=== PATIENT | male | born 1990 | race Caucasian/White ===

== ENCOUNTER → 2017-08-06 | Outpatient (CLI) | payer BC ==
[~2017-08-06] MED LIST: CEPH500C PO; CFTR250V IM; CLIN-80 PO; HYDR-3720 PO; HYDR-757 PO; IBUP800T26 PO
--- NOTE | 2017-08-06 17:57 | Diagnostic Imaging Report ---
INDICATION: Sledding injury. EXAMINATION: AP and lateral views of the sacrum were obtained. FINDINGS: No fracture or dislocation of the sacrum. IMPRESSION: Negative sacrum and coccyx. Dictated by: Dictated on workstation # [id number]
--- NOTE | 2017-08-06 17:57 | Diagnostic Imaging Report ---
Indication: Back injury Lumbar spine AP and lateral views of lumbar spine show grade 1 spondylolisthesis at L4-5. There are suspected bilateral pars defects at L4 that could be acute fractures. Impression: Grade 1 spondylolisthesis at L4-5 with suspected bilateral pars interarticularis fractures. Dictated by: Dictated on workstation # [id number]
== END ==
LOC: RAD 17:31
PROVIDERS: ATTEND Nurse Practitioner Family
DX: S39.92XA Unspecified injury of lower back, initial encounter (principal); M43.16 Spondylolisthesis, lumbar region; Y93.23 Activity, snow (alpine) (downhill) skiing, snowboarding, sledding, tobogganing and snow tubing
CPT/HCPCS: 72100; 72220

== ENCOUNTER → 2017-08-15 | Outpatient (CLI) | payer BC ==
--- NOTE | 2017-08-15 12:46 | Diagnostic Imaging Report ---
PROCEDURE: MRI lumbar spine. TECHNIQUE: Multiplanar, multisequence MRI of the lumbar spine was performed without contrast. INDICATION: Back pain after sliding accident. FINDINGS: The alignment of the lumbar spine is normal. The vertebral body heights are well-maintained. There is no spondylolysis or spondylolisthesis. No fractures are identified. Conus medullaris is seen at L1 is normal in appearance. The T12-L1 disc is unremarkable. L1-L2 disc is unremarkable. L2-L3 disc is unremarkable. L3-L4 disc is unremarkable. At L4-L5, there is slight loss of disc height and signal intensity. Some broad-based annular bulging slightly more prominent in a left paramedian distribution. There is slight effacement of ventral thecal sac and mild left neural foraminal encroachment. At L5-S1, there is mild left paramedian and left lateral annular bulging. This contributes to some mild left neural foraminal encroachment. The abdominal aorta is nonaneurysmal. The kidneys are normal. There are no other focal soft tissue abnormalities. IMPRESSION: Mild lower lumbar degenerative disc disease as detailed above. Dictated by: Dictated on workstation # [id number]
== END ==
LOC: RAD 11:26
PROVIDERS: ATTEND Physician Assistant
DX: M47.27 Other spondylosis with radiculopathy, lumbosacral region (principal)
CPT/HCPCS: 72148

== ENCOUNTER 2018-09-16 18:40 | Emergency (ER) | payer BC ==
[~2018-09-16] VITALS: Ht 177.8 cm; Wt 77.1 kg
[2018-09-16] MEDS ORDERED: AMOXICILLIN 500 MG (POLYMOX) CAP PO STA (18:48)
[2018-09-16] MEDS ORDERED: HYDR-4226 PO (18:53)
[2018-09-16] MEDS ORDERED: AMOX500C2 PO (18:53)
--- NOTE | 2018-09-16 18:53 | ED EENT ---
History of Present Illness General Stated Complaint: DENTAL PAIN Source: patient Exam Limitations: no limitations History of Present Illness Date Seen by Provider: Sep 16, 2018 Time Seen by Provider: 18:49 Initial Comments To ER with left upper dental pain. He had 2 teeth removed from this location on , 09/14/18. He's had progressive pain now spreads over to the right upper maxilla and pain on both sides of his nose. He was not given antibiotics or pain medication he states. No fevers but he has had chills. Timing/Duration: gradual Severity: moderate Location: facial, dental Associated Symptoms: facial pain/swelling Allergies and Home Medications Allergies Coded Allergies: No Known Drug Allergies (Unverified , 10/28/13) Home Medications Ceftriaxone Sodium 250 Mg/Vial Soln, 1 GM IM ONCE Prescribed by: OLAF OWENS on 10/28/13 1202 Cephalexin Monohydrate 500 Mg Capsule, 1 EACH PO TID Prescribed by: SANDRA PERKINS on 12/04/14 2204 Clindamycin Hcl 150 Mg Capsule, 300 MG PO Q6H, (Reported) Hydrocodone Bit/Acetaminophen 1 Each Tablet, 1-2 EACH PO Q4-6HR PRN for PAIN Prescribed by: OLAF OWENS on 10/28/13 1202 Hydrocodone Bit/Acetaminophen 1 Each Tablet, 1 EA PO Q6H PRN for SEVERE PAIN Prescribed by: SANDRA PERKINS on 12/04/14 2204 Ibuprofen 800 Mg Tablet, 800 MG PO q8h PRN for PAIN, (Reported) Patient Home Medication List Home Medication List Reviewed: Yes Review of Systems Review of Systems Constitutional: see HPI, chills Eyes: No Symptoms Reported Ears: No Symptoms Reported Nose: no symptoms reported Mouth: see HPI Throat: no symptoms reported Respiratory: no symptoms reported Cardiovascular: no symptoms reported Musculoskeletal: no symptoms reported Past Cvwaymr-Bwfqsz-Mzurkg Hx Patient Social History Recent Foreign Travel: No Contact w/Someone Who Travel: No Immunizations Up To Date Tetanus Booster (TDap): Unknown Physical Exam Height, Weight, BMI Height: 5'10" Weight: 150lbs. oz. 68.114064up; BMI Method:Stated General Appearance: WD/WN, no apparent distress Eyes: bilateral eye normal inspection, bilateral eye PERRL, bilateral eye EOMI Ears: bilateral ear auricle normal, bilateral ear canal normal, bilateral ear TM normal Mouth/Throat: pharynx normal, dental tenderness, other (no visualized swelling or abscess. No bleeding. No instability of the maxilla.) Neck: non-tender, full range of motion Cardiovascular: regular rate, rhythm Respiratory: no respiratory distress, no accessory muscle use Gastrointestinal: normal bowel sounds, non tender Departure Impression Primary Impression: Postoperative pain Additional Impression: Pain, dental Disposition: HOME, SELF-CARE Condition: Stable Departure-Patient Inst. Decision time for Depature: 18:52 Referrals: NO,LOCAL PHYSICIAN (PCP/Family) Primary Care Physician Patient Instructions: Dental Pain Add. Discharge Instructions: 1. Return to ER for any increasing intolerable pain, fevers, increasing swelling or other concerns. Call your dentist on Tuesday follow-up. Scripts Hydrocodone/Acetaminophen ([place] 5-325 Tablet) 1 Each Tablet 1 EACH PO Q6H PRN for PAIN-MODERATE MDD 10, #14 TAB Prov: SANDRA PERKINS APRN 09/16/18 Amoxicillin (Amoxicillin) 500 Mg Capsule 500 MG PO TID, #21 CAP Prov: SANDRA PERKINS APRN 09/16/18 Images Mouth/Nose 1 - Tenderness SANDRA PERKINS APRN Sep 16, 2018 18:53
[2018-09-16] MEDS ORDERED: RX-HYDROCODONE/APAP 5/325 MG #4 TAB PK PO PRN (19:00)
[2018-09-16 19:12] VITALS: BP 157/86
== END 2018-09-16 18:57 | disposition home or self-care (01) ==
LOC: EDUNIT# 18:40 → ER 18:41
DX: G89.18 Other acute postprocedural pain (principal); K08.89 Other specified disorders of teeth and supporting structures; Z98.890 Other specified postprocedural states
CPT/HCPCS: 99283

== ENCOUNTER 2018-09-17 02:16 | Emergency (ER) | payer BC ==
[~2018-09-17] VITALS: Ht 177.8 cm; Wt 77.1 kg
[~2018-09-17 02:16] MED LIST changes: +AMOX500C2 PO; +HYDR-4226 PO
--- NOTE | 2018-09-17 03:56 | ED EENT ---
History of Present Illness General Chief Complaint: Dental Problems/Pain Stated Complaint: DENTAL PAIN,FACE SWOLLEN,PT CRYING Nursing Triage Note: Pt reports he had dental work done on (09/14). Pt was seen in this ED for dental pain last night. Pt reports pain and swelling has worsened. Pt reports a blister on top of his mouth. Pt was prescribed hydrocodone last night and amoxicillin. Pt states pharmacy was closed after leaving ER and has not picked up amoxicillin Rx yet. Source: patient, old records Exam Limitations: no limitations History of Present Illness Date Seen by Provider: Sep 17, 2018 Time Seen by Provider: 03:54 Initial Comments Patient resists ER by private conveyance with chief complaint of some face pain and swelling. Couple days ago he had a tooth extracted and had two dentists work on for over 2 hours and said it felt like they were about to break his face. They told him come back in 3 weeks and they would be something else about it. The tooth they're trying to extract was on his left upper frontal maxillary line. He is having quite a bit of pain today so he came in the ER last night around 1800 seen by one of the practitioners and given some hydrocodone and a first dose of amoxicillin. He's not picked up the prescription because the pharmacy does not open until tomorrow morning. He's not had any fever but he's felt some chills and sweats. He is noticing a lot more swelling now on the opposite side of his face right maxillary running up along his nose and around his eyes. He says he feels like he has a headache behind his eyes now right worse than left. Does not take any other medicines nor have any significant medical disease. States the hydrocodone is not cutting the pain either. He feels like there is a bunch of swelling in his gums and abscess. Allergies and Home Medications Allergies Coded Allergies: No Known Drug Allergies (Unverified , 10/28/13) Home Medications Amoxicillin 500 Mg Capsule, 500 MG PO TID Prescribed by: SANDRA PERKINS on 09/16/18 185 Ceftriaxone Sodium 250 Mg/Vial Soln, 1 GM IM ONCE Prescribed by: OLAF OWENS on 10/28/13 1202 Cephalexin Monohydrate 500 Mg Capsule, 1 EACH PO TID Prescribed by: SANDRA PERKINS on 12/04/14 2204 Clindamycin Hcl 150 Mg Capsule, 300 MG PO Q6H, (Reported) Hydrocodone Bit/Acetaminophen 1 Each Tablet, 1-2 EACH PO Q4-6HR PRN for PAIN Prescribed by: OLAF OWENS on 10/28/13 1202 Hydrocodone Bit/Acetaminophen 1 Each Tablet, 1 EA PO Q6H PRN for SEVERE PAIN Prescribed by: SANDRA PERKINS on 12/04/14 2204 Hydrocodone/Acetaminophen 1 Each Tablet, 1 EACH PO Q6H PRN for PAIN-MODERATE Prescribed by: SANDRA PERKINS on 09/16/18 1853 Ibuprofen 800 Mg Tablet, 800 MG PO q8h PRN for PAIN, (Reported) Patient Home Medication List Home Medication List Reviewed: Yes Review of Systems Review of Systems Constitutional: chills; No fever; malaise Eyes: Denies Blindness, Denies Blurred Vision Ears: Denies Dizziness, Denies Pain Nose: denies clots, denies congestion Mouth: denies clots; pain, swelling; denies bloody discharge, denies clear discharge, denies purulent discharge Throat: denies pain, denies swelling Respiratory: No cough, No short of breath Cardiovascular: No chest pain, No edema Past Pjbhdtb-Aiiamz-Cmzagk Hx Patient Social History Alcohol Use: Denies Use Recreational Drug Use: No Smoking Status: Current Everyday Smoker Type Used: Electronic/Vapor Recent Foreign Travel: No Contact w/Someone Who Travel: No Recent Infectious Disease Expo: No Recent Hopitalizations: No Physical Abuse: No Sexual Abuse: No Immunizations Up To Date Tetanus Booster (TDap): Unknown Seasonal Allergies Seasonal Allergies: No Past Medical History Surgeries: Yes (ARTHROSCOPIC SHOULDER) Respiratory: No Cardiac: No Neurological: No Genitourinary: No Gastrointestinal: No Musculoskeletal: No Endocrine: No HEENT: No Cancer: No Psychosocial: No Integumentary: No Physical Exam Vital Signs Vital Signs - First Documented 09/17/18 03:29 Temp 98.2 Pulse 91 Resp 18 B/P (MAP) 146/90 (108) Pulse Ox 97 O2 Delivery Room Air Height, Weight, BMI Height: 5'10.00" Weight: 170lbs. oz. 77.208106hb; BMI Method:Stated General Appearance: WD/WN, mild distress Eyes: bilateral eye normal inspection, bilateral eye PERRL, bilateral eye EOMI Ears: bilateral ear auricle normal, bilateral ear canal normal, bilateral ear TM normal Nose: normal inspection; No active bleeding, No discharge Mouth/Throat: other (tooth socket left upper maxilla. Right eye tooth with caries, tenderness and some gingival swelling but no obvious abscess. Right maxillary facial edema/cellulitis) Neck: non-tender, full range of motion, supple, normal inspection Cardiovascular: normal peripheral pulses, regular rate, rhythm, no edema Respiratory: lungs clear, normal breath sounds, no respiratory distress, no accessory muscle use Gastrointestinal: non tender, soft Neurologic/Psychiatric: alert, oriented x 3 Skin: normal color, warm/dry Progress/Results/Core Measures Results/Orders Lab Results Laboratory Tests Test 09/17/18 04:25 Range/Units White Blood Count 15.5 H 4.3-11.0 10^3/uL Red Blood Count 5.15 4.35-5.85 10^6/uL Hemoglobin 15.5 13.3-17.7 G/DL Hematocrit 43 40-54 % Mean Corpuscular Volume 83 80-99 FL Mean Corpuscular Hemoglobin 30 25-34 PG Mean Corpuscular Hemoglobin Concent 36 32-36 G/DL Red Cell Distribution Width 13.2 10.0-14.5 % Platelet Count 258 130-400 10^3/uL Mean Platelet Volume 9.0 7.4-10.4 FL Neutrophils (%) (Auto) 82 H 42-75 % Lymphocytes (%) (Auto) 9 L 12-44 % Monocytes (%) (Auto) 8 0-12 % Eosinophils (%) (Auto) 1 0-10 % Basophils (%) (Auto) 0 0-10 % Neutrophils # (Auto) 12.7 H 1.8-7.8 X 10^3 Lymphocytes # (Auto) 1.4 1.0-4.0 X 10^3 Monocytes # (Auto) 1.3 H 0.0-1.0 X 10^3 Eosinophils # (Auto) 0.1 0.0-0.3 10^3/uL Basophils # (Auto) 0.0 0.0-0.1 10^3/uL My Orders Orders - CARIDAD LOU Ct Maxillofacial Wo (09/17/18 03:53) Cbc With Automated Diff (09/17/18 03:53) Comprehensive Metabolic Panel (09/17/18 03:53) Hs C Reactive Protein (09/17/18 03:53) Ketorolac Injection (Toradol Injection) (09/17/18 04:00) Ketorolac Injection (Toradol Injection) (09/17/18 04:30) Saline Lock/Iv-Start (09/17/18 04:18) Manual Differential (09/17/18 04:25) Ceftriaxone For Iv Use (Rocephin For I (09/17/18 04:45) Lidocaine 2% Viscous 15 Ml (Xylocaine Vi (09/17/18 04:45) Medications Given in ED Current Medications Medications Dose Ordered Sig/Vishnu Route Start Time Stop Time Status Last Admin Dose Admin Ketorolac Tromethamine 30 mg ONCE ONCE IVP 09/17/18 04:30 09/17/18 04:31 DC 09/17/18 04:25 30 MG Vital Signs/I&O 09/17/18 03:29 Temp 98.2 Pulse 91 Resp 18 B/P (MAP) 146/90 (108) Pulse Ox 97 O2 Delivery Room Air Blood Pressure Mean: 108 Progress Progress Note : Time: 04:[address] maxillofacial, basic labs and Toradol. Patient stated she's had some chills but has not checked for fever. He is afebrile today. Heart rate above 90. If he has a white count we will get cultures. Diagnostic Imaging Diagonstic Imaging: CT (noncontrast) Plain Films/CT/US/NM/MRI: head (maxillofacial) Comments Sees some infection in the right upper incisor extending with some swelling but no abscess of the face. Left upper eye tooth still has the root intact and could be a nidus for abscess formation. He recommends that this gets removed sooner rather than later. There is bilateral facial swelling which may represent an infectious process. No underlying abscess. There is periapical lucency around the right maxillary lateral incisor, likely due to odontogenic disease. Left side demonstrates missing left first and second premolars. Adjacent to the left first premolar space is a triangular density measuring 8 mm which may represent a tooth fragment. This may be causing the left-sided facial swelling. Reviewed: Reviewed Night Hawk Study, Reviewed by Me, Discussed w/Radiologist Departure Impression Primary Impression: Pain in a tooth or teeth Additional Impression: Facial cellulitis Disposition: 01 HOME, SELF-CARE Condition: Stable Departure-Patient Inst. Decision time for Depature: 04:42 Referrals: NO,LOCAL PHYSICIAN (PCP/Family) Primary Care Physician Patient Instructions: Fractured Tooth (DC) Add. Discharge Instructions: You may apply 1 g of the viscous lidocaine jelly to some gauze and place in the tooth socket every 4 hours. Use the Tylenol and ibuprofen. If you have breakthrough pain you can use the hydrocodone one tablet as prescribed. Continue to use the amoxicillin as prescribed 3 times a day. Follow-up Tuesday, tomorrow with the dentist and look for further management of your impacted tooth and facial cellulitis. Warm compresses to the face. All discharge instructions reviewed with patient and/or family. Voiced understanding. Work/School Note: Work Release Form Date Seen in the Emergency Department: Sep 17, 2018 Return to Work: Sep 19, 2018 Restrictions: No Restrictions CARIDAD LOU Sep 17, 2018 03:56
[2018-09-17] MEDS ORDERED: KETOROLAC 30 MG/ML VIAL IM ONE (04:00)
[2018-09-17] MEDS ORDERED: KETOROLAC 30 MG/ML VIAL IVP ONE (04:30)
[2018-09-17 04:34] LABS: BASOPHILS % (AUTO) 0 % (0-10); EOSINOPHILS # (AUTO) 0.1 10^3/uL (0.0-0.3); EOSINOPHILS % (AUTO) 1 % (0-10); HEMATOCRIT 43 % (40-54); HEMOGLOBIN 15.5 G/DL (13.3-17.7); LYMPHOCYTES # (AUTO) 1.4 X 10^3 (1.0-4.0); LYMPHOCYTES % (AUTO) 9 % (12-44); MEAN CORPUSCULAR HEMOGLOBIN 30 PG (25-34); MEAN CORPUSCULAR HGB CONC 36 G/DL (32-36); MEAN CORPUSCULAR VOLUME 83 FL (80-99); MONOCYTES # (AUTO) 1.3 X 10^3 (0.0-1.0); MONOCYTES % (AUTO) 8 % (0-12); NEUTROPHILS # (AUTO) 12.7 X 10^3 (1.8-7.8); NEUTROPHILS % (AUTO) 82 % (42-75); PLATELET COUNT 258 10^3/uL (130-400); RED CELL DISTRIBUTION WIDTH 13.2 % (10.0-14.5); WHITE BLOOD COUNT 15.5 10^3/uL (4.3-11.0)
[2018-09-17] MEDS ORDERED: cefTRIAXone FOR IV USE 1,000 MG in WATER (STERILE) FOR INJECTION 10 ML IV ONE (04:45)
[2018-09-17] MEDS ORDERED: LIDOCAINE 2% VISCOUS 15 ML UDC PO ONE (04:45)
[2018-09-17 04:53] LABS: ALANINE AMINOTRANSFERASE 24 U/L (0-55); ALBUMIN 4.6 GM/DL (3.2-4.5); ALKALINE PHOSPHATASE 65 U/L (40-136); BILIRUBIN,TOTAL 0.8 MG/DL (0.1-1.0); BUN/CREATININE RATIO 7; CALCIUM 9.8 MG/DL (8.5-10.1); CARBON DIOXIDE 25 MMOL/L (21-32); CHLORIDE 102 MMOL/L (98-107); CREATININE SERUM 0.83 MG/DL (0.60-1.30); GFR ESTIMATED > 60; GLUCOSE 120 MG/DL (70-105); POTASSIUM 3.8 MMOL/L (3.6-5.0); SODIUM 139 MMOL/L (135-145); TOTAL PROTEIN 7.5 GM/DL (6.4-8.2)
[2018-09-17 05:03] VITALS: BP 146/78
[2018-09-17 05:38] LABS: EOSINOPHILS % (MANUAL) 1 %; LYMPHOCYTES % (MANUAL) 9 %; MONOCYTES % (MANUAL) 6 %; NEUTROPHILS % (MANUAL) 84 %
--- NOTE | 2018-09-17 07:38 | Diagnostic Imaging Report ---
PROCEDURE: CT maxillofacial without contrast. TECHNIQUE: Multiple contiguous axial images were obtained through the facial bones without the use of intravenous contrast. INDICATION: Recent left-sided dental work with left sided facial pain. FINDINGS: There are findings compatible with recent extraction of the patient's left-sided first and second premolars with a small degree of fluid and gas within the tooth sockets. Just lateral of the maxilla to level of the first premolar is a linear calcification which has morphology suggestive of a tooth root. This may reflect a retained broken tooth root fragment. All of the patient's maxillary molars appear to been previously retracted bilaterally. The mandible also demonstrates a prior second premolar and molar extractions. There is some diffuse facial swelling demonstrated about the maxilla bilaterally which likely reflects a post surgical edema or inflammation. There is no definable fluid collection or abscess. There is no significant soft tissue gas. There is some mucosal thickening within the maxillary sinuses as well as some bubbly fluid in the left maxillary sinus. The orbital contents appear unremarkable. The mastoids and middle ears appear clear. Limited assessment of intracranial contents unremarkable. The posterior nasopharynx and oropharynx and visualized portion of the airway unremarkable. Small bilateral cervical lymph nodes. IMPRESSION: 1. Recent left-sided tooth extractions with what appears to be a small retained tooth root fragment lateral of the left maxilla at the level of the first premolar extraction. 2. Bilateral hermelinda-maxillary soft tissue swelling which may reflect infection or postsurgical change. There is no definable fluid collection or drainable abscess. 3. Mucosal thickening within the maxillary sinuses as well as some bubbly fluid in the left maxillary sinus suggesting sinusitis. 4. Extensive prior remote and molar resections as above. 5. Agree with the preliminary stat report. Dictated by: Dictated on workstation # [id number]
== END 2018-09-17 05:03 | disposition home or self-care (01) ==
LOC: EDUNIT# 02:16 → ER 02:18
DX: L03.211 Cellulitis of face (principal); K08.89 Other specified disorders of teeth and supporting structures; F17.290 Nicotine dependence, other tobacco product, uncomplicated; Z98.890 Other specified postprocedural states
CPT/HCPCS: 36415; 70486; 80053; 85007; 85027; 86141

== ENCOUNTER → 2020-01-17 | Outpatient (CLI) | payer BC ==
--- NOTE | 2020-01-17 13:35 | Diagnostic Imaging Report ---
PROCEDURE: CT lumbar spine without contrast. TECHNIQUE: Multiple contiguous axial images were obtained through the lumbar spine without the use of intravenous contrast. Sagittal and coronal reformations were then performed. Auto Exposure Controls were utilized during the CT exam to meet ALARA standards for radiation dose reduction. INDICATION: Low back pain. FINDINGS: Curvature of the lumbar spine is normal. There is minimal anterolisthesis of L4 on L5. Vertebral body heights are maintained. No acute fractures are seen. There are pars defects bilaterally at the L3-L4 and L4-L5 levels. These appear to be well-corticated and likely chronic. Bony canal appears to be widely patent at all levels. The paraspinous tissues are unremarkable. IMPRESSION: Minimal spondylolisthesis at L4 on L5. There are bilateral pars defects at L3-L4 and L4-L5 levels. No other significant abnormality is detected. Dictated by: Dictated on workstation # [id number]
--- NOTE | 2020-01-17 14:42 | Diagnostic Imaging Report ---
PROCEDURE: MRI lumbar spine. TECHNIQUE: Multiplanar, multisequence MRI of the lumbar spine was performed without contrast. INDICATION: Low back pain and low back injuries. COMPARISON: Correlation is made with prior MRI study from 08/15/[address] lumbar spine performed earlier the same day. FINDINGS: Curvature of the lumbar spine is normal. Minimal anterolisthesis of L4 on L5 is again noted. Pars defects at the L3-L4 and L4-L5 levels are noted. No associated marrow edema is present to suggest acute fractures. Vertebral body heights are maintained. No vertebral body fracture or vertebral body marrow lesion is seen. There is some loss of height and signal intensity to the L4-L5 and L5-S1 discs, compatible with mild degenerative disc disease. Conus is unremarkable at the T12-L1 level. T12-L1: Central canal and neuroforamina are widely patent. L1-L2: Central canal and neuroforamina are widely patent. L2-L3: Central canal and neuroforamina are widely patent. L3-L4: Central canal and neuroforamina are widely patent. L4-L5: There is broad-based disc bulging. Central canal is widely patent. There is moderate left neuroforaminal narrowing. Right neuroforamen is patent. L5-S1: There is some linear signal within the posterolateral annulus which may represent annular tear. There is asymmetric left posterolateral broad-based disc bulging, resulting in [id number] left neuroforaminal narrowing. Right neuroforamen and central canal are patent. Paraspinous tissues are unremarkable. IMPRESSION: 1. 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 There is minimal anterolisthesis of L4 on L5. 2. L4-L5 and L5-S1 degenerative disc disease with neuroforaminal narrowing, as described. No central canal stenosis is detected. Dictated by: Dictated on workstation # [id number]
== END ==
LOC: RAD 13:04
PROVIDERS: ATTEND Orthopaedic Surgery
DX: M51.37 Other intervertebral disc degeneration, lumbosacral region (principal)
CPT/HCPCS: 72131; 72148

== ENCOUNTER 2020-05-24 16:26 | Emergency (ER) | payer BC ==
[~2020-05-24] VITALS: Ht 180.3 cm; Wt 72.6 kg
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
[2020-05-24] MEDS ORDERED: LIDOCAINE 1% INJ 20 ML 20 ML VIAL ONE (16:57)
[2020-05-24] MEDS ORDERED: BUPIVACAINE 0.25% 30 ML (SENSORCAINE) VIAL INJ ONE (17:00)
[2020-05-24] MEDS ORDERED: LIDOCAINE 1% INJ 20 ML 20 ML VIAL INJ ONE (17:00)
[2020-05-24] MEDS ORDERED: CEPH500T PO (17:44)
[2020-05-24 17:55] VITALS: BP 122/71
== END 2020-05-24 17:55 | disposition home or self-care (01) ==
LOC: EDUNIT# 16:26 → ER 16:27
DX: S61.011A Laceration without foreign body of right thumb without damage to nail, initial encounter (principal); F17.290 Nicotine dependence, other tobacco product, uncomplicated; W45.8XXA Other foreign body or object entering through skin, initial encounter
CPT/HCPCS: 99282

== ENCOUNTER → 2020-08-15 | Outpatient (CLI) | payer BC ==
[~2020-08-15] MED LIST changes: +CEPH500T PO
--- NOTE | 2020-08-15 16:25 | Diagnostic Imaging Report ---
PROCEDURE: MRI lumbar spine. TECHNIQUE: Multiplanar, multisequence MRI of the lumbar spine was performed without contrast. INDICATION: Low back pain. [place] something pop in the left hip area on 08/08/2020. COMPARISON: MRI lumbar spine 01/17/2020. FINDINGS: There are five lumbar-type vertebral bodies. Grade 1 anterolisthesis of L4 on L5 is stable. Vertebral body heights are preserved. 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 There is increasing fluid about the left L3 pars defect which may be a local pain generator. No abnormal signal in the conus which terminates at L1. Normal morphology of the cauda equina. The visualized pelvis and paravertebral soft tissues are unremarkable. At L4-L5, the anterolisthesis results in mild bilateral neural foraminal narrowing. No spinal canal or lateral recess narrowing. No disc protrusions or extrusions in the lumbar spine. No substantial facet arthropathy. No high-grade spinal canal, lateral recess or neural foraminal narrowing. IMPRESSION: 1. 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 There is some increasing fluid about the left L3 pars defect which may be a local pain generator. 2. Stable grade 1 anterolisthesis of L4 on L5 results in only mild bilateral neural foraminal narrowing at this level. 3. No high-grade neural impingement in the lumbar spine. No acute osseous findings. Dictated by: Dictated on workstation # [id number]
== END ==
LOC: RAD 14:00
PROVIDERS: ATTEND Orthopaedic Surgery
DX: M48.061 Spinal stenosis, lumbar region without neurogenic claudication (principal); M43.16 Spondylolisthesis, lumbar region; M53.86 Other specified dorsopathies, lumbar region
CPT/HCPCS: 72148

== ENCOUNTER 2021-05-02 14:11 | Emergency (ER) | payer SELFPAY ==
[~2021-05-02] VITALS: Ht 177.8 cm; Wt 72.5 kg
[2021-05-02 14:25] VITALS: BP 141/91
--- NOTE | 2021-05-02 15:17 | Diagnostic Imaging Report ---
INDICATION: Injury, pain. EXAMINATION: Right hand from 05/02/2021. FINDINGS: 3 views of the hand. There is mild soft tissue prominence adjacent to the base of the 5th metacarpal with tiny densities adjacent to the metacarpal, likely small avulsion fracture fragments. Correlate for point tenderness. The remaining osseous structures appear intact. IMPRESSION: Suspected small avulsion fractures at the base of the 5th metacarpal with adjacent soft tissue prominence noted. Dictated by: Dictated on workstation # [id number]
--- NOTE | 2021-05-02 15:20 | ED Upper Extremity ---
General Chief Complaint: Upper Extremity Stated Complaint: R WRIST PAIN Nursing Triage Note: PT AMB TO FT1 WITH COMPLAINT OF RIGHT HAND/WRIST PAIN. STATES HE WAS MESSING AROUND WITH A PUMPKIN AND HURT HAND. Source: patient Exam Limitations: no limitations (IGNACIO MORALES MED STUDENT) History of Present Illness Date Seen by Provider: May 02, 2021 Time Seen by Provider: 14:38 Initial Comments This is Ross a 30 yo male that presented to the ED via private vehicle with the chief complaint of right sided wrist and forearm pain. The pain began about 30 minutes ago after punching a pumpkin. The pain and inability to move the right hand has continued to get worse so he came in. Pt states that it feel dislocated and that traction provides relief. He describes intense pain over the dorsal wrist radiating up the forearm primarily on the medial and lateral aspects. He has tried to ice it but denies taking any medications. PMH is significant for anxiety and ADHD. Pt states that he is currently taking suboxone and is 221 days sober. When asked what he from sober from he stated adderall. I specified and asked if he was addicted to pain medications and he denied. During the exam his called the nursing staff and relayed that he had a severe opioid addiction in the past. Onset: just prior to arrival Severity: moderate Pain/Injury Location: right forearm, right wrist, right hand Method of Injury: direct blow Modifying Factors: Worse With Jarring, Worse With Movement; Improves With Other (traction) (IGNACIO MORALES STUDENT) Allergies and Home Medications Allergies Coded Allergies: No Known Drug Allergies (Unverified , 10/28/13) Patient Home Medication List Home Medication List Reviewed: Yes (SHAWANDA FRANK MD) Amoxicillin (Amoxicillin) 500 Mg Capsule, 500 MG PO TID Prescribed by: SANDRA PERKINS on 09/16/18 185 Ceftriaxone Sodium (Rocephin Injection) 250 Mg/Vial Soln, 1 GM IM ONCE Prescribed by: OLAF OWENS on 10/28/13 1202 Cephalexin (Cephalexin) 500 Mg Tablet, 500 MG PO TID Prescribed by: DEANGELO PAGE on 05/24/20 1744 Cephalexin Monohydrate (Cephalexin) 500 Mg Capsule, 1 EACH PO TID Prescribed by: SANDRA PERKINS on 12/04/144 Clindamycin Hcl (Clindamycin Hcl) 150 Mg Capsule, 300 MG PO Q6H, (Reported) Entered as Reported by: KELLY DRUMMOND on 10/28/13 1026 Hydrocodone Bit/Acetaminophen (Hydrocodone-Apap 10-325 Tablet) 1 Each Tablet, 1- 2 EACH PO Q4-6HR PRN for PAIN Prescribed by: OLAF OWENS on 10/28/13 1202 Hydrocodone Bit/Acetaminophen ([place] 5-325 Tablet) 1 Each Tablet, 1 EA PO Q6H PRN for SEVERE PAIN Prescribed by: SANDRA PERKINS on 12/04/14 2204 Hydrocodone/Acetaminophen (Hydrocodone/Acetaminophen 5 MG/325 MG TAB) 1 Each Tablet, 1 EACH PO Q6H PRN for PAIN-MODERATE Prescribed by: SANDRA PERKINS on 09/16/18 1853 Ibuprofen (Ibuprofen) 800 Mg Tablet, 800 MG PO q8h PRN for PAIN, (Reported) Entered as Reported by: KELLY DRUMMOND on 10/28/13 1026 Review of Systems Constitutional: no symptoms reported EENTM: no symptoms reported Respiratory: no symptoms reported Cardiovascular: no symptoms reported Gastrointestinal: no symptoms reported Genitourinary: no symptoms reported Musculoskeletal: see HPI, joint pain, joint swelling Skin: see HPI, change in color (redness and swelling over right dorsal wrist ) Psychiatric/Neurological: See HPI, Anxiety (IGNACIO MORALES [employer] STUDENT) Past Nkpgjmg-Kftpwq-Xiqnnf Hx Patient Social History Tobacco Use?: Yes Tobacco type used: Cigarettes Smoking Status: Current Everyday Smoker Use of E-Cig and/or Vaping dev: No Substance use?: No Additional substance use comme: HX OPIOID ABUSE Alcohol Use?: No Pt feels they are or have been: No (IGNACIO MORALES MED STUDENT) Immunizations Up To Date Tetanus Booster (TDap): Unknown (IGNACIO MORALES [employer] STUDENT) Seasonal Allergies Seasonal Allergies: No (IGNACIO MORALES [employer] STUDENT) Past Medical History Surgeries: Yes (ARTHROSCOPIC SHOULDER) Respiratory: No Cardiac: No Neurological: No Genitourinary: No Gastrointestinal: No Musculoskeletal: No Endocrine: No HEENT: No Cancer: No Psychosocial: No Integumentary: No (IGNACIO MORALES [employer] STUDENT) Physical Exam Vital Signs Vital Signs - First Documented 05/02/21 14:25 Pulse 82 Resp 19 B/P (MAP) 141/91 (108) Pulse Ox 98 O2 Delivery Room Air (SHAWANDA FRANK MD) Vital Signs Capillary Refill : Less Than 3 Seconds (IGNACIO MORALES STUDENT) Height, Weight, BMI Height: 5'10.00" Weight: 170lbs. oz. 77.865983hj; 22.00 BMI Method:Stated General Appearance: WD/WN, moderate distress HEENT: PERRL/EOMI Neck: non-tender, supple, normal inspection Cardiovascular: normal peripheral pulses, regular rate, rhythm, no edema, no gallop, no murmur Respiratory: chest non-tender, lungs clear, normal breath sounds, no respiratory distress, no accessory muscle use Gastrointestinal: normal bowel sounds, non tender, soft Shoulder: normal inspection, non-tender, no evidence of injury Elbow/Forearm: Right, bone tenderness, limited ROM, pain, soft tissue tenderness Wrist: Yes bone tenderness, Yes limited ROM, Yes pain, Yes soft tissue tenderness, Yes swelling Hand: Right, bone tenderness, limited ROM, soft tissue tenderness, stiffness, swelling Neurologic/Tendon: normal sensation, normal motor functions, responds to pain Neurologic/Psychiatric: boat painter II-XII nml as tested, no motor/sensory deficits, alert, normal mood/affect, oriented x 3 Skin: normal color, warm/dry (IGNACIO MORALES) Procedures/Interventions Suture Size: 4-0, 5-0 (IGNACIO MORALES) Progress/Results/Core Measures Results/Orders My Orders Orders - SHAWANDA FRANK MD Forearm, Right, 2 Views (05/02/21 14:48) Hand, Right, 3 Views (05/02/21 14:48) Ketorolac Injection (Toradol Injection) (05/02/21 16:30) (SHAWANDA FRANK MD) Medications Given in ED Current Medications Medications Dose Ordered Sig/Vishnu Route Start Time Stop Time Status Last Admin Dose Admin Ketorolac Tromethamine 30 mg ONCE ONCE IM 05/02/21 16:30 05/02/21 16:31 DC 05/02/21 16:30 30 MG (SHAWANDA FRANK MD) Vital Signs/I&O 05/02/21 14:25 Pulse 82 Resp 19 B/P (MAP) 141/91 (108) Pulse Ox 98 O2 Delivery Room Air (SHAWANDA FRANK MD) Blood Pressure Mean: 108 Diagnostic Imaging Diagonstic Imaging: Xray Plain Films/CT/US/NM/MRI: forearm, hand Comments X-rays viewed by me and reports reviewed. See reports below: NAME: RAKESH TORRES [facility] REC#: [id number] PT STATUS: REG ER : 1990 PHYSICIAN: SHAWANDA FRANK MD ADMIT DATE: 05/02/21/ER Signed Date of Exam:05/02/21 FOREARM, RIGHT, 2 VIEWS INDICATION: Trauma, pain. EXAMINATION: Right forearm tendon, 05/02/2021. FINDINGS: 2 views of the forearm. There is no evidence for an acute fracture or dislocation. The joint spaces are well maintained. There is no significant soft tissue swelling. IMPRESSION: No acute process. Dictated by: Dictated on workstation # [id number] Dict: 05/02/21 1515 Trans: 05/02/21 152 [facility] [id number] Interpreted by: TABBY EDWARDS MD Electronically signed by: TABBY EDWARDS MD 05/02/21 1522 NAME: RAKESH TORRES [facility] REC#: [id number] PT STATUS: REG ER : 1990 PHYSICIAN: SHAWANDA FRANK MD ADMIT DATE: 05/02/21/ER Signed Date of Exam:05/02/21 HAND, RIGHT, 3 VIEWS INDICATION: Injury, pain. EXAMINATION: Right hand from 05/02/2021. FINDINGS: 3 views of the hand. There is mild soft tissue prominence adjacent to the base of the 5th metacarpal with tiny densities adjacent to the metacarpal, likely small avulsion fracture fragments. Correlate for point tenderness. The remaining osseous structures appear intact. IMPRESSION: Suspected small avulsion fractures at the base of the 5th metacarpal with adjacent soft tissue prominence noted. Dictated by: Dictated on workstation # [id number] Dict: 05/02/21 1514 Trans: 05/02/21 152 [facility] [id number] Interpreted by: TABBY EDWARDS MD Electronically signed by: TABBY EDWARDS MD 05/02/21 1522 (SHAWANDA FRANK MD) Departure Impression Primary Impression: Fracture of base of metacarpal bone of right hand Additional Impression: Right wrist sprain Qualified Codes: S63.501A - Unspecified sprain of right wrist, initial encounter Disposition: 01 HOME, SELF-CARE Condition: Stable Departure-Patient Inst. Decision time for Depature: 16:20 (SHAWANDA FRANK MD) Referrals: [facility] (PCP) Primary Care Physician COLIN BHATIA (Family) Primary Care Physician ANJELICA ZAMBRANO MD, TERRY D MD Patient Instructions: Avulsion Fracture, Wrist Sprain ED Add. Discharge Instructions: Keep your hand in the splint as much as possible. Elevate on a soft surface such as a pillow to the level of your heart as much as possible to reduce pain a nd swelling. Ice in 20-minute intervals for the first 24 to 48 hours. You may take Tylenol (acetaminophen) up to 1000 mg every 6 hours combined with ibuprofen up to 600 mg every 6 hours as needed for pain. Follow-up with an orthopedic provider such as those listed below by phone on Tuesday to schedule a follow-up appointment. Complete the financial systems administrator paperwork provided by the hospital as fast as possible to help facilitate your care. Call with questions or concerns, and return to the ER if you have worsening symptoms. All discharge instructions reviewed with patient and/or family. Voiced understanding. Medical Student Attestation and Attending Note: I have personally interviewed and examined this patient along with Ignacio Morales MS4. I have reviewed student documentation including history, physical, and assessments. I agree with the documentation except where otherwise noted. Patient was found to have an avulsion fracture of the fifth metacarpal base correlating with wrist sprain. He was fitted with a Colles' splint. Wrist was wrapped with Lio bandage prior to the splinting. Due to his current Suboxone use, opioids would not be an appropriate treatment for his pain. He was given an injection of Toradol for initial pain management and advised to use a combination of compressive wrapping, icing, elevation, Tylenol, and ibuprofen for analgesia at home. I advised that he follow-up promptly with an orthopedic provider as well. I gave him the names of Dr. Posada and Dr. Zambrano and advised that he complete the financial systems administrator with the hospital soon as possible. See discharge instructions. Exam: General: Alert, oriented, no acute distress, well developed HEENT: Normocephalic and atraumatic Heart: Regular rate and rhythm without murmur Lungs: Clear to auscultation bilaterally with normal effort Extremities: Pain, tenderness, and swelling of the proximal right hand at the ulnar aspect. Limited evp and chief operating officer and range of motion due to pain. Capillary refill and sensation intact in the fingers. Significant range of motion with flexion, extension, and rotation of the wrist. There is swelling and tenderness on the dorsal aspect. Neuropsych: Alert, oriented, no focal deficits Skin: Warm and dry without rashes (SHAWANDA FRANK MD) Copy Copies To 1: ANJELICA ZAMBRANO MD Copies To 2: JACQUIE POSADA MD, DYLAN MED STUDENT May 02, 2021 15:20 SHAWANDA FRANK MD May 02, 2021 16:21
[2021-05-02] MEDS ORDERED: KETOROLAC 30 MG/ML VIAL IM ONE (16:30)
== END 2021-05-02 16:52 | disposition home or self-care (01) ==
LOC: EDUNIT# 14:11 → ER 14:13
DX: S62.316A Displaced fracture of base of fifth metacarpal bone, right hand, initial encounter for closed fracture (principal); S63.501A Unspecified sprain of right wrist, initial encounter; F17.210 Nicotine dependence, cigarettes, uncomplicated; W22.8XXA Striking against or struck by other objects, initial encounter
CPT/HCPCS: 29125; 73090; 73130

== ENCOUNTER → 2021-05-11 | Outpatient (CLI) | payer SELFPAY ==
--- NOTE | 2021-05-11 12:33 | Diagnostic Imaging Report ---
INDICATION: Right wrist sprain 4 views of the right wrist show a nondisplaced fracture through the waist of the scaphoid. There is no other fracture, dislocation or other abnormality seen. IMPRESSION: There is a nondisplaced fracture through the waist of the scaphoid. Dictated by: Dictated on workstation # [id number]
== END ==
LOC: ORTHO 09:49
PROVIDERS: ATTEND Orthopaedic Surgery
DX: S62.001A Unspecified fracture of navicular [scaphoid] bone of right wrist, initial encounter for closed fracture (principal); X58.XXXA Exposure to other specified factors, initial encounter
CPT/HCPCS: 29075; 73110

== ENCOUNTER → 2021-05-25 | Outpatient (CLI) | payer SELFPAY ==
--- NOTE | 2021-05-25 11:22 | Diagnostic Imaging Report ---
INDICATION: Closed fracture of scaphoid bone of wrist. TECHNIQUE: Four views of the right wrist. CORRELATION STUDY: 05/11/2021. FINDINGS: Lucency involving the distal 3rd of the scaphoid is present with previous fracture line slightly blurred; however, lucency does remain. Alignment is near-anatomic. Remaining carpal bones are intact. Small bone fragmentation at the base of the 5th metacarpal, stable. The visualized soft tissues appearing unremarkable. IMPRESSION: Suggested partial but incomplete healing of the mid to distal scaphoid fracture. Lucency does remain. Alignment is near anatomic. Continued followup evaluation is recommended. Dictated by: Dictated on workstation # [id number]
== END ==
LOC: ORTHO 09:43
PROVIDERS: ATTEND Orthopaedic Surgery
DX: S62.024A Nondisplaced fracture of middle third of navicular [scaphoid] bone of right wrist, initial encounter for closed fracture (principal); X58.XXXA Exposure to other specified factors, initial encounter
CPT/HCPCS: 29075; 73110

== ENCOUNTER 2021-06-10 17:18 | Emergency (ER) | payer SELFPAY ==
[~2021-06-10] VITALS: Ht 180 cm; Wt 74.0 kg
[2021-06-10 17:42] VITALS: BP 140/84
--- NOTE | 2021-06-10 18:05 | ED Upper Extremity ---
General Chief Complaint: Upper Extremity Stated Complaint: ARM SOARS Nursing Triage Note: PT AMB TO ER WITH C/O SORES UNDER HIS CAST ON HIS R ARM. PT WAS GOING TO GET THE CAST REMOVED TODAY BUT MISSED HIS APPT AND WAS TOLD TO COME TO THE ER. PT STILL HAS FOLLOW UP APPT TUESDAY WITH ORTHO Allergies and Home Medications Allergies Coded Allergies: No Known Drug Allergies (Unverified , 10/28/13) Patient Home Medication List Amoxicillin (Amoxicillin) 500 Mg Capsule, 500 MG PO TID Prescribed by: SANDRA PERKINS on 09/16/181852 Ceftriaxone Sodium (Rocephin Injection) 250 Mg/Vial Soln, 1 GM IM ONCE Prescribed by: OLAF OWENS on 10/28/13 120 Cephalexin (Cephalexin) 500 Mg Tablet, 500 MG PO TID Prescribed by: DEANGELO PAGE on 05/24/20 1744 Cephalexin Monohydrate (Cephalexin) 500 Mg Capsule, 1 EACH PO TID Prescribed by: SANDRA PERKINS on 12/04/14 220 Clindamycin Hcl (Clindamycin Hcl) 150 Mg Capsule, 300 MG PO Q6H, (Reported) Entered as Reported by: KELLY DRUMMOND on 10/28/13 1026 Hydrocodone Bit/Acetaminophen (Hydrocodone-Apap 10-325 Tablet) 1 Each Tablet, 1- 2 EACH PO Q4-6HR PRN for PAIN Prescribed by: OLAF OWENS on 10/28/13 1202 Hydrocodone Bit/Acetaminophen ([place] 5-325 Tablet) 1 Each Tablet, 1 EA PO Q6H PRN for SEVERE PAIN Prescribed by: SANDRA PERKINS on 12/04/14 2204 Hydrocodone/Acetaminophen (Hydrocodone/Acetaminophen 5 MG/325 MG TAB) 1 Each Tablet, 1 EACH PO Q6H PRN for PAIN-MODERATE Prescribed by: SANDRA PERKINS on 09/16/18 185 Ibuprofen (Ibuprofen) 800 Mg Tablet, 800 MG PO q8h PRN for PAIN, (Reported) Entered as Reported by: KELLY DRUMMOND on 10/28/13 1026 Past Brofclr-Iqmsci-Xbfbnp Hx Patient Social History Tobacco Use?: Yes Tobacco type used: Cigars Substance use?: No Alcohol Use?: No Pt feels they are or have been: No Immunizations Up To Date Tetanus Booster (TDap): Unknown Influenza Vaccine Up-to-Date: No; Not Current Seasonal Allergies Seasonal Allergies: No Past Medical History Surgeries: Yes (ARTHROSCOPIC SHOULDER) Respiratory: No Cardiac: No Neurological: No Genitourinary: No Gastrointestinal: No Musculoskeletal: No Endocrine: No HEENT: No Cancer: No Psychosocial: No Integumentary: No Physical Exam Vital Signs Vital Signs - First Documented 06/10/21 17:42 Temp 36.4 Pulse 77 Resp 18 B/P (MAP) 140/84 (102) O2 Delivery Room Air Capillary Refill : Less Than 3 Seconds Height, Weight, BMI Height: 5'10.00" Weight: 170lbs. oz. 77.861966cp; 22.00 BMI Method:Stated Procedures/Interventions Suture Size: 4-0, 5-0 Progress/Results/Core Measures Results/Orders Vital Signs/I&O 06/10/21 17:42 Temp 36.4 Pulse 77 Resp 18 B/P (MAP) 140/84 (102) O2 Delivery Room Air Blood Pressure Mean: 102 Departure Impression Primary Impression: abrasions from cast Disposition: 01 HOME, SELF-CARE Condition: Stable Departure-Patient Inst. Decision time for Depature: 18:03 Referrals: [facility] (PCP) Primary Care Physician COLIN BHATIA (Family) Primary Care Physician Patient Instructions: Cast Care ED Add. Discharge Instructions: [facility] SORES KEEP APPOINTMENT ON TUESDAY WITH ORTHOPEDIC SURGEON All discharge instructions reviewed with patient and/or family. Voiced understanding. ISSA WASHINGTON DO Jun 10, 2021 18:05
== END 2021-06-10 18:15 | disposition home or self-care (01) ==
LOC: EDUNIT# 17:18 → ER 17:21
DX: S40.811A Abrasion of right upper arm, initial encounter (principal); Z72.0 Tobacco use; X58.XXXA Exposure to other specified factors, initial encounter
CPT/HCPCS: 99281

== ENCOUNTER → 2021-06-17 | Outpatient (CLI) | payer SELFPAY ==
--- NOTE | 2021-06-17 10:31 | Diagnostic Imaging Report ---
INDICATION: Right wrist pain. COMPARISON: 05/25/2021. EXAMINATION: Right wrist, 4 views. FINDINGS: The radiocarpal joint is in good alignment. The mid body scaphoid fracture shows no significant change in alignment. There has been continued healing since the previous exam. There is no indication of osteonecrosis. The carpal bones show no subluxation to suggest intercarpal ligament disruption. No significant arthritic changes are noted. IMPRESSION: There has been continued healing of the nondisplaced mid body scaphoid fracture. The articulating surfaces are smooth. No evidence of osteonecrosis. Dictated by: Dictated on workstation # [id number]
== END ==
LOC: ORTHO 09:37
PROVIDERS: ATTEND Orthopaedic Surgery
DX: S62.024D Nondisplaced fracture of middle third of navicular [scaphoid] bone of right wrist, subsequent encounter for fracture with routine healing (principal); X58.XXXD Exposure to other specified factors, subsequent encounter
CPT/HCPCS: 73110

== ENCOUNTER 2022-02-06 19:17 | Emergency (ER) | payer SELFPAY ==
[~2022-02-06] VITALS: Ht 180 cm; Wt 77.0 kg
--- NOTE | 2022-02-06 19:46 | ED Upper Extremity ---
General Stated Complaint: L HAND LAC,CUT WITH KNIFE,BLEEDING Source: patient Exam Limitations: no limitations History of Present Illness Date Seen by Provider: Feb 06, 2022 Time Seen by Provider: 19:43 Initial Comments Patient is a 31-year-old male who presents ED with laceration to the dorsum side of his left hand. Patient was working on a AC unit using a knife when it slipped resulting in a laceration between the first and second metatarsal on the left dorsum hand. Active bleeding. Apply direct pressure with improvement of bleeding. Normal active range of motion of his digits. Not up-to-date on his t etanus. Denies any distal numbness and tingling. Does not appear to be arterial involvement on exam. Allergies and Home Medications Allergies Coded Allergies: No Known Drug Allergies (Unverified , 10/28/13) Patient Home Medication List Home Medication List Reviewed: Yes Amoxicillin (Amoxicillin) 500 Mg Capsule, 500 MG PO TID Prescribed by: SANDRA PERKINS on 09/16/181852 Ceftriaxone Sodium (Rocephin Injection) 250 Mg/Vial Soln, 1 GM IM ONCE Prescribed by: OLAF OWENS on 10/28/13 1202 Cephalexin (Cephalexin) 500 Mg Tablet, 500 MG PO TID Prescribed by: DEANGELO PAGE on 05/24/20 1744 Cephalexin Monohydrate (Cephalexin) 500 Mg Capsule, 1 EACH PO TID Prescribed by: SANDRA PERKINS on 12/04/142203 Clindamycin Hcl (Clindamycin Hcl) 150 Mg Capsule, 300 MG PO Q6H, (Reported) Entered as Reported by: KELLY DRUMMOND on 10/28/13 1026 Hydrocodone Bit/Acetaminophen (Hydrocodone-Apap 10-325 Tablet) 1 Each Tablet, 1- 2 EACH PO Q4-6HR PRN for PAIN Prescribed by: OLAF OWENS on 10/28/13 1202 Hydrocodone Bit/Acetaminophen ([place] 5-325 Tablet) 1 Each Tablet, 1 EA PO Q6H PRN for SEVERE PAIN Prescribed by: SANDRA PERKINS on 12/04/14 220 Hydrocodone/Acetaminophen (Hydrocodone/Acetaminophen 5 MG/325 MG TAB) 1 Each Tablet, 1 EACH PO Q6H PRN for PAIN-MODERATE Prescribed by: SANDRA PERKINS on 09/16/18 185 Ibuprofen (Ibuprofen) 800 Mg Tablet, 800 MG PO q8h PRN for PAIN, (Reported) Entered as Reported by: KELLY DRUMMOND on 10/28/13 1026 Review of Systems Constitutional: No chills, No diaphoresis EENTM: No ear discharge, No hearing loss, No blurred vision Respiratory: No cough, No dyspnea on exertion Cardiovascular: No chest pain Gastrointestinal: No abdominal pain, No diarrhea, No nausea, No vomiting Genitourinary: No decreased output, No discharge Musculoskeletal: No back pain, No joint pain, No joint swelling Skin: change in color; No other All Other Systems Reviewed Negative Unless Noted: Yes Past Qlcfhgl-Kvogee-Kkrffc Hx Immunizations Up To Date Tetanus Booster (TDap): Unknown Seasonal Allergies Seasonal Allergies: No Past Medical History Surgeries: Yes (ARTHROSCOPIC SHOULDER) Respiratory: No Cardiac: No Neurological: No Genitourinary: No Gastrointestinal: No Musculoskeletal: No Endocrine: No HEENT: No Cancer: No Psychosocial: No Integumentary: No Physical Exam Vital Signs Vital Signs - First Documented 02/06/22 19:35 Temp 36.6 Pulse 94 Resp 16 B/P (MAP) 152/105 (121) Capillary Refill : Height, Weight, BMI Height: 5'10.00" Weight: 170lbs. oz. 77.863726op; 22.00 BMI Method:Stated General Appearance: WD/WN, no apparent distress HEENT: PERRL/EOMI, normal ENT inspection, TMs normal, pharynx normal Neck: non-tender, full range of motion, supple Cardiovascular: regular rate, rhythm, no edema, no gallop, no JVD Respiratory: chest non-tender, lungs clear Gastrointestinal: normal bowel sounds, non tender, soft Back: normal inspection, no CVA tenderness Shoulder: normal inspection Elbow/Forearm: normal inspection, no evidence of injury Wrist: Yes normal inspection, Yes non-tender, Yes no evidence of injury Hand: normal ROM (Of the left thumb, index finger. Normal active range of motion left wrist. ), Left, laceration (three cm laceration to left dorsal hand. 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, no motor/sensory deficits, alert, normal mood/affect, oriented x 3 Skin: other (Laceration to left dorsum hand.) Procedures/Interventions Wound Location: Upper Extremities Other Wound Location leftt hand Wound's Depth, Shape: sub Q Wound Explored: clean Irrigated w/ Saline (ccs): 300 Betadine Prep?: Yes Anesthesia: 1% Lidocaine (2), Lidocaine w/ Epi (2) Volume Anesthetic (ccs): 4 Suture: Ethlion, Vicryl (3-0) Suture Size: 4-0 Number of Sutures: 6 Layer Closure?: 2 Number Deep Layer Sutures: 2 Progress/Results/Core Measures Results/Orders My Orders Orders - BAILEY GREGORY Lidocaine/Epi 2% 1:100,000 (Xylocaine/Ep (02/06/22 20:00) Dipht,Pertuss(Acell),Tet Adult (Boostrix (02/06/22 20:30) Medications Given in ED Current Medications Medications Dose Ordered Sig/Vishnu Route Start Time Stop Time Status Last Admin Dose Admin Diphtheria/ Tetanus/Acell Pertussis 0.5 ml ONCE ONCE IM 02/06/22 20:30 02/06/22 20:31 DC 02/06/22 20:25 0.5 ML Lidocaine/ Epinephrine 20 ml ONCE ONCE INJ 02/06/22 20:00 02/06/22 20:03 DC 02/06/22 20:00 20 ML Vital Signs/I&O 02/06/22 02/06/22 19:35 20:32 Temp 36.6 36.6 Pulse 94 90 Resp 16 16 B/P (MAP) 152/105 (121) 150/97 Departure Communication (PCP) 3cm Laceration noted to left hand on the dorsum side between the first and second metatarsal on the web. He did have active bleeding on arrival. Had to apply 2 Vicryl stitches to the vessel to control bleeding. Appears to be venous. Did attempt to cauterize which was unsuccessful. I was able to approximate the wound with 6 Ethilon stitches. No muscular or tendon involvement. Patient Tolerated procedure well. Normal active range of motion of the digits. Neurovascular intact. Updated tetanus. Recommend removal of sutures in 10 to 14 days. Recommend topical Neosporin to prevent infection. Keep the area covered. If any worsening symptoms such as redness or swelling to return back to ED. Impression Primary Impression: Hand laceration Disposition: HOME, SELF-CARE Condition: Stable Departure-Patient Inst. Decision time for Depature: 20:20 Referrals: [facility] (PCP) Primary Care Physician COLIN BHATIA (Family) Primary Care Physician Patient Instructions: Laceration Repair With Stitches ED Add. Discharge Instructions: Remove sutures in 10 to 14 days. Apply Neosporin twice a day keep the area covered while healing and to prevent tear of the laceration repair. BAILEY GREGORY Feb 06, 2022 19:46
[2022-02-06] MEDS ORDERED: LIDOCAINE/EPI 2% 1:100,00 (XYLOCAINE) 20 ML VIAL INJ ONE (20:00)
[2022-02-06] MEDS ORDERED: TETANUS,DIPTH,PERTUSS P/F (BOOSTRIX) 0.5 ML VIAL IM ONE (20:30)
[2022-02-06 20:32] VITALS: BP 150/97
== END 2022-02-06 20:33 | disposition home or self-care (01) ==
LOC: EDUNIT# 19:17 → ER 19:19
DX: S61.412A Laceration without foreign body of left hand, initial encounter (principal); Z23 Encounter for immunization; Z28.310 Unvaccinated for COVID-19; W26.0XXA Contact with knife, initial encounter; Y92.59 Other trade areas as the place of occurrence of the external cause; Y99.0 Civilian activity done for income or pay
CPT/HCPCS: 12013; 12032; 13152; 90715